=== PATIENT | male | born 1965 | race Caucasian/White ===

== ENCOUNTER 2016-12-06 21:24 | Emergency (ER) | payer OTHER ==
[~2016-12-06] VITALS: Ht 175.3 cm; Wt 95.2 kg
== END 2016-12-06 23:45 | disposition short-term general hospital (02) ==
LOC: ER 21:24
DX: T18.9XXA Foreign body of alimentary tract, part unspecified, initial encounter (principal); R13.10 Dysphagia, unspecified; E78.5 Hyperlipidemia, unspecified; Z87.442 Personal history of urinary calculi; Z79.82 Long term (current) use of aspirin; Z79.899 Other long term (current) drug therapy
CPT/HCPCS: A9270; J1610